=== PATIENT | male | born 1935 | race Caucasian/White ===

== ENCOUNTER 2017-05-15 08:58 | Outpatient (CLI) | payer MEDICARE ==
--- NOTE | 2017-05-15 11:45 | XRAY Report ---
RIGHT HIP AND PELVIS: 05/15/2017 CLINICAL INDICATION: Pain. FINDINGS: Frontal view of the hips and pelvis and frogleg lateral view of the right hip demonstrate mild right hip osteoarthritis. There is no evidence of fracture or dislocation. No radiopaque foreign body is seen in the soft tissues. IMPRESSION: MILD RIGHT HIP OSTEOARTHRITIS. TD: 05/15/2017 11:44
== END 2017-05-15 08:59 | disposition home or self-care (01) ==
LOC: DI 08:58
PROVIDERS: ATTEND Nurse Practitioner Family
DX: M16.11 Unilateral primary osteoarthritis, right hip (principal)

== ENCOUNTER 2021-01-04 11:50 | Outpatient (CLI) | payer MEDICARE | END 2021-01-04 11:51 | disposition home or self-care (01) | LOC: DI 11:50 | PROVIDERS: ATTEND Family Medicine | DX: R01.1 Cardiac murmur, unspecified (principal); I35.0 Nonrheumatic aortic (valve) stenosis | CPT/HCPCS: 93306 ==

== ENCOUNTER 2022-07-24 10:27 | Outpatient (CLI) | payer MEDICARE ==
--- NOTE | 2022-07-24 19:47 | XRAY Report ---
PROCEDURE: Lumbar Spine 2 View INDICATIONS: LUMBAR STENOSIS TECHNIQUE: 3 views of the lumbar spine were acquired. COMPARISON: None. FINDINGS: Bones: 5 [id number] vertebrae are present. Anatomic bony alignment. No vertebral body compress ion fractures. Advanced lumbar spine degenerative change demonstrable by large osteophytes, disc spa ce height loss, lower lumbar spine facet joint hypertrophy. There is bony neural foraminal narrowing. No suspicious bony lesions. Soft tissues: Overlying bowel gas pattern is normal. No suspicious soft tissue calcifications. IMPRESSION: Advanced DDD and degenerative change. Consider lumbar spine MRI for further evaluation. Reviewed by: Richard Meyer MD on 07/24/2022 7:46 PM PDT Approved by: Richard Meyer MD on 07/24/2022 7:46 PM PDT Station ID: [id number]
== END 2022-07-24 10:28 | disposition home or self-care (01) ==
LOC: DI.S 10:27
PROVIDERS: ATTEND Nurse Practitioner Family
DX: M47.816 Spondylosis without myelopathy or radiculopathy, lumbar region (principal); M51.36 Other intervertebral disc degeneration, lumbar region; M48.061 Spinal stenosis, lumbar region without neurogenic claudication

== ENCOUNTER 2022-07-31 13:02 | Outpatient (CLI) | payer MEDICARE ==
--- NOTE | 2022-07-31 18:14 | MRI Report ---
PROCEDURE: LUMBAR SPINE WO INDICATIONS: LUMBAR SPINAL STENOSIS TECHNIQUE: Noncontrast sagittal T1 spin echo and T2 fast echo, sagittal STIR, axial T1 and T2 fast spin echo thr ough the lumbar spine. In cases with scoliosis, additional coronal T2 fast spin echo may be performe d. COMPARISON: Lumbar spine plain films dated 07/24/2022. FINDINGS: Image quality: Excellent. Alignment and Curvature: There is normal bony alignment. Bone Marrow: Marrow is of normal overall signal. No acute vertebral body compression fractures. Spinal Cord: Conus medullaris terminates at the L1 level. Visualized cord demonstrates normal signa l and size. Paraspinous Soft Tissues: No paravertebral masses. T12-L1: No canal stenosis or foraminal stenosis. L1-L2: No canal stenosis or foraminal stenosis. L2-L3: Mild disc height loss. Disc bulge. Facet hypertrophy. Epidural lipomatosis. Moderate to sev ere canal stenosis. [id number] bilateral foraminal narrowing. L3-L4: Disc bulge. Facet hypertrophy. Probable previous left hemilaminectomy. Mild canal stenosis. Mild to moderate bilateral foraminal stenosis. L4-L5: Probable remote posterior decompression. Disc bulge. Facet hypertrophy. No canal stenosis. M oderate bilateral foraminal narrowing with a degree of bilateral foraminal L4 nerve root impingement. L5-S1: Mild broad-based right paracentral disc protrusion with minimal posterior displacement of th e right S1 nerve root in the right lateral recess. Facet hypertrophy. No significant central canal st enosis. Moderate to severe bilateral foraminal narrowing with a degree of bilateral foraminal L5 nerv e root impingement. IMPRESSION: 1. There has likely been previous posterior decompression at L3-L4 and L4-L5. 2. There is moderate to severe canal stenosis at L2-L3 and mild canal stenosis at L3-L4. 3. Multilevel foraminal narrowing as described above. Findings include moderate bilateral foraminal n arrowing at L4-L5 and moderate to severe bilateral foraminal narrowing at L5-S1. Reviewed by: Chema Nuñez MD on 07/31/2022 6:13 PM PDT Approved by: Chema Nuñez MD on 07/31/2022 6:13 PM PDT Station ID: [id number]
== END 2022-07-31 13:03 | disposition home or self-care (01) ==
LOC: DI 13:02
PROVIDERS: ATTEND Nurse Practitioner Family
DX: M51.16 Intervertebral disc disorders with radiculopathy, lumbar region (principal); M48.061 Spinal stenosis, lumbar region without neurogenic claudication; M47.26 Other spondylosis with radiculopathy, lumbar region; M51.17 Intervertebral disc disorders with radiculopathy, lumbosacral region; M47.27 Other spondylosis with radiculopathy, lumbosacral region; M48.07 Spinal stenosis, lumbosacral region

== ENCOUNTER 2022-10-25 13:55 | Outpatient (CLI) | payer MEDICARE | END 2022-10-25 13:56 | disposition home or self-care (01) | LOC: DI 13:55 | PROVIDERS: ATTEND Nurse Practitioner Family | DX: I08.0 Rheumatic disorders of both mitral and aortic valves (principal) | CPT/HCPCS: 93306 ==

== ENCOUNTER 2023-09-25 20:03 | Emergency (ER) | payer MEDICARE ==
[2023-09-25 20:13] VITALS: O2SAT 99
--- NOTE | 2023-09-25 20:26 | ED Physician Documentation ---
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 and has continuous bleeding from the biopsy site.) PD PAST MEDICAL HISTORY - Past Medical History Past Medical History: Yes Cardiovascular: Hypertension, High cholesterol : Benign prostate hypertrophy - Past Surgical History Past Surgical History: No Ortho: Rotator cuff repair - Allergies Allergies/Adverse Reactions: Allergies Allergy/AdvReac Type Severity Reaction Status Date / Time codeine Allergy Itching Verified 09/25/23 20:07 Penicillins Allergy Rash Verified 09/25/23 20:07 - Social History Does the pt smoke?: No Smoking Status: Never smoker Does the pt drink ETOH?: No Does the pt have substance abuse?: No - Immunizations Immunizations are current?: Yes PD ED PE NORMAL - Vitals Vital signs reviewed: Yes - General General: Alert and oriented X 3, No acute distress - HEENT HEENT: PERRL, EOMI, Other (There is basically just an abrasion where the biopsy was done on the right cheek with just slow venous oozing.) Results - Vitals Vitals: Vital Signs - 24 hr 09/25/23 20:07 Temperature 36.5 C Heart Rate 61 Respiratory 16 Rate Blood Pressure 160/80 H O2 Saturation 99 Oxygen O2 Source Room air Procedures - General procedure General procedure: The area of the right cheek that was bleeding was locally infiltrated with lidocaine with epinephrine and then cauterized with silver nitrate Departure - Departure Disposition: 01 Home, Self Care Clinical Impression: Bleeding from wound Condition: Good Record reviewed to determine appropriate education?: Yes Instructions: ED Wound Check Post Op Bleeding Forms: PCP List
[2023-09-25] MEDS: SILVER NITRATE APPLICATOR TOP STA (20:37)
[2023-09-25] MEDS: LIDOCAINE 1%-EPI 1:100000 20 ML MDV SUBQ STA (20:37)
[2023-09-25 21:23] VITALS: BP 157/87
== END 2023-09-25 21:14 | disposition home or self-care (01) ==
LOC: ED 20:03
DX: L76.21 Postprocedural hemorrhage of skin and subcutaneous tissue following a dermatologic procedure (principal)
CPT/HCPCS: 96372; 99283